=== PATIENT | female | born 1990 | race Caucasian/White ===

== ENCOUNTER 2021-05-01 19:49 | Emergency (ER) | payer OTHER ==
[~2021-05-01] VITALS: Ht 152.4 cm; Wt 59.1 kg
[2021-05-01 19:59] VITALS: TEMP 98.1
[2021-05-01] MEDS ORDERED: FLEXERIL 1010 MG/TAB PO (21:53)
[2021-05-01 22:46] VITALS: BP 119/71; PULSE 74
== END 2021-05-01 22:46 | disposition home or self-care (01) ==
LOC: COL.ER 19:49
DX: S63.602A Unspecified sprain of left thumb, initial encounter (principal); S49.92XA Unspecified injury of left shoulder and upper arm, initial encounter; V49.49XA Driver injured in collision with other motor vehicles in traffic accident, initial encounter

== ENCOUNTER 2022-07-15 16:56 | Outpatient (CLI) | payer SELFPAY ==
[~2022-07-15] VITALS: Ht 149.9 cm; Wt 68.6 kg
[~2022-07-15 16:56] MED LIST: ACTIGALL 300MG300 MG PO; FLEXERIL 1010 MG/TAB PO; NAPROSYN500 MG PO; PRENATAL TABLET PO
[2022-07-15 17:00] VITALS: BP 151/89; PULSE 78; TEMP 98.1
--- NOTE | 2022-07-15 17:37 | NUR ---
1700 PATIENT HERE FROM OFFICE FOR EXTENDED MONITORING, LABS AND BLOOD PRESSURE CHECK. PATIENT SPEAKS MINIMAL ENGLIGH BUT COMMUNICATES FARILY WELL. EFM ON FHT 120 BABY VERY ACTIVE AT THIS TIME. NO CONTRACTIONS FELT OR ON MONITOR. BP 151/89. +2 SWELLING TO FEET. PATIENT DENIES ABD PAIN OR HEADACHE AT THIS TIME. ASSESSMENT COMPLETED. DR DE PAZ AT BEDSIDE NOTIFIED ALL ABOVE INFORMATION ORDERS TO CALL WITH LABS WHEN BACK. ENTRY LEVEL MACHINE OPERATOR AT BEDSIDE FOR LAB DRAW
[2022-07-15 17:45] LABS: COLLECTION METHOD CLEAN CATCH
[2022-07-15 17:51] LABS: HEMATOCRIT 40.5 % (37.0-47.0); HEMOGLOBIN 13.6 g/dl (12.5-16.0); MEAN CELL VOLUME 85 fl (80.0-100.0); MEAN CORPUSCULAR HEMOGLOBIN 29 pg (27-31); MEAN CORPUSCULAR HGB CONC 34 g/dl (33.0-37.0); MEAN PLATELET VOLUME 11.2 fl (7.4-10.4); PLATELET COUNT 241 K/mm3 (130-400); RED BLOOD COUNT 4.77 M/mm3 (4.10-5.30); REDCELL DISTRIBUTION WIDTH-CV 12.9 % (11.5-14.5)
[2022-07-15 17:57] LABS: MUCOUS Present (NOT PRESENT); URINE BACTERIA Rare /hpf (NONE SEEN); URINE RBC 0-2 /hpf (0-2)
[2022-07-15 18:00] VITALS: BP 150/99; PULSE 75
[2022-07-15 18:06] LABS: URINE APPEARANCE Hazy (CLEAR/HAZY); URINE BLOOD TRACE-INTACT (NEGATIVE); URINE COLOR Yellow (YELLOW); URINE GLUCOSE Negative (NEGATIVE); URINE KETONE Negative (NEGATIVE); URINE NITRATE Negative (NEGATIVE); URINE PROTEIN(semi-quant) 3+ (NEGATIVE); URINE UROBILINOGEN 0.2 (NEGATIVE)
[2022-07-15 18:08] LABS: ALBUMIN 1.7 gm/dL (3.5-5.0); BILIRUBIN,TOTAL 0.1 mg/dL (0.2-1.2); CALCIUM 8.3 mg/dL (8.4-10.2); CREATININE, serum 0.54 mg/dL (0.57-1.11); POTASSIUM 3.9 mmol/L (3.5-4.5); TOTAL PROTEIN 5.3 gm/dL (6.2-8.1)
[2022-07-15 18:15] VITALS: BP 145/89; PULSE 79
--- NOTE | 2022-07-15 18:23 | NUR ---
[address] labs [address] Dr[address] posey at this time. Dr posey stte i will call high risk Dr and call inclusion internship nurse back with plan of care.
[2022-07-15 18:30] VITALS: BP 146/87; PULSE 86
[2022-07-15 18:45] VITALS: BP 154/99; PULSE 88
[2022-07-15 19:15] VITALS: BP 150/89; PULSE 89
--- NOTE | 2022-07-15 19:39 | NUR ---
[employer] used for discharge. ID number [id number], name Ruben Barclay. Discharge instructions reviewed and return precautions explained. Pt should expect a call from [facility] tomorrow to make an appointment, if she can be seen or Wednesday ok to cancel appt with [facility] on Wednesday. If patient cannot be seen with [facility] until next week, pt needs to keep appointment with [facility]. Pt verbalized understanding. Pt seen ambulating off unit in stable conditions with belongings.
== END 2022-07-15 19:39 | disposition home or self-care (01) ==
LOC: LDRO 16:56
PROVIDERS: Obstetrics & Gynecology
DX: O16.3 Unspecified maternal hypertension, third trimester (principal); Z3A.30 30 weeks gestation of pregnancy